=== PATIENT | female | born 1965 ===

== ENCOUNTER 2019-04-07 09:06 | Day surgery (SDC) | payer BC ==
[~2019-04-07] VITALS: Ht 162.6 cm; Wt 97.9 kg
[2019-04-07] MEDS ORDERED: TELM20 (09:41)
[2019-04-07] MEDS ORDERED: CETI5 (09:41)
[2019-04-07] MEDS ORDERED: RHINOCORT ALL8.43 ML (09:41)
[2019-04-07] MEDS ORDERED: PROAIR DIGIHAL90 MCG (09:42)
--- NOTE | 2019-04-07 09:45 | NUR ---
04/07/19 0945 Edie Martin 1 IV MISS IN RH BY ELINOR VALVE 1 GOOD IV IN RAC BY ELINOR PT TOW
== END 2019-04-07 11:27 | disposition home or self-care (01) ==
LOC: ORSCSDS 09:06
PROVIDERS: Internal Medicine Gastroenterology
PROC: 0DBH8ZX Excision of Cecum, Via Natural or Artificial Opening Endoscopic, Diagnostic (ICD-10-PCS; principal; 2019-04-07 10:30)
PROC: 0DBK8ZX Excision of Ascending Colon, Via Natural or Artificial Opening Endoscopic, Diagnostic (ICD-10-PCS; principal; 2019-04-07 10:30)
DX: Z12.11 Encounter for screening for malignant neoplasm of colon (principal); Z86.010 Personal history of colon polyps; K57.30 Diverticulosis of large intestine without perforation or abscess without bleeding; D12.0 Benign neoplasm of cecum; D12.2 Benign neoplasm of ascending colon; E66.01 Morbid (severe) obesity due to excess calories; Z68.38 Body mass index [BMI] 38.0-38.9, adult; Z79.899 Other long term (current) drug therapy
CPT/HCPCS: 88305; J2704; J7120